=== PATIENT | male | born 1985 | race Caucasian/White ===

== ENCOUNTER 2017-05-05 08:10 | Emergency (ER) | payer SELFPAY ==
[2017-05-05 08:16] VITALS: BP 181/98
[2017-05-05] MEDS ORDERED: Ondansetron 4 MG/2 ML SDV IVPUSH ONE (08:43)
[2017-05-05] MEDS ORDERED: Sodium Chloride 0.9% 1,000 ML IV SCH ×2 (08:45→09:45)
--- NOTE | 2017-05-05 08:49 | EDM.PDOC ---
ED HPI GENERAL MEDICAL PROBLEM - General Chief Complaint: Gastrointestinal Problem Stated Complaint: nausea/vomting/diarrhea Time Seen by Provider: 05/05/17 08:38 Source of Information: Reports: Patient History Limitations: Reports: No Limitations - History of Present Illness Onset: Today, Sudden Onset Date: 05/05/17 Onset Time: 03:30 Duration: Hour(s): (4), Getting Worse Location: Reports: Generalized Severity: Mild Improves with: Reports: None Worsens with: Reports: Movement Context: Denies: Sick Contact, Trauma Associated Symptoms: Reports: Loss of Appetite, Nausea/Vomiting. Denies: Fever/ Chills, Headaches, Rash Abdominal Pain Score (Numeric/FACES): 8 - Related Data Allergies Allergy/AdvReac Type Severity Reaction Status Date / Time acetaminophen [From Vicodin] Allergy Nausea and Verified 05/05/17 08:17 Vomiting codeine Allergy Nausea and Verified 05/05/17 08:17 Vomiting hydrocodone [From Vicodin] Allergy Nausea and Verified 05/05/17 08:17 Vomiting Home Meds: Home Meds . [No Known Home Meds] 08/05/16 [History] Past Medical History HEENT History: Reports: None Cardiovascular History: Reports: None Respiratory History: Reports: None Gastrointestinal History: Reports: None Genitourinary History: Reports: None Musculoskeletal History: Reports: None Neurological History: Reports: None Psychiatric History: Reports: None Endocrine/Metabolic History: Reports: None Hematologic History: Reports: None Immunologic History: Reports: None Oncologic (Cancer) History: Reports: None Dermatologic History: Reports: None - Infectious Disease History Infectious Disease History: Reports: None - Past Surgical History Head Surgeries/Procedures: Reports: None HEENT Surgical History: Reports: None Cardiovascular Surgical History: Reports: None Respiratory Surgical History: Reports: None GI Surgical History: Reports: Hernia, Inguinal, Hernia Repair/Other Male Surgical History: Reports: None Endocrine Surgical History: Reports: None Neurological Surgical History: Reports: None Musculoskeletal Surgical History: Reports: None Oncologic Surgical History: Reports: None Dermatological Surgical History: Reports: None Social & Family History - Family History Family Medical History: Noncontributory - Tobacco Use Smoking Status *Q: Never Smoker Years of Tobacco use: 10 Used Tobacco, but Quit: Yes Month Tobacco Last Used: 2014 Second Hand Smoke Exposure: Yes - Tobacco Core Measures Tobacco Use/Smoking Within Last 30 Days: No - Caffeine Use Caffeine Use: Reports: Coffee - Alcohol Use Alcohol Use History: No - Recreational Drug Use Recreational Drug Use: No - Sexual History Sexual History: Reports: None - Living Situation & Occupation Living situation: Reports: Single Occupation: Employed ED ROS GENERAL - Review of Systems Review Of Systems: See Below Constitutional: Reports: Fever, Chills, Weakness, Decreased Appetite. Denies: Diaphoresis HEENT: Reports: No Symptoms Respiratory: Reports: No Symptoms Cardiovascular: Reports: No Symptoms Endocrine: Reports: No Symptoms GI/Abdominal: Reports: Abdominal Pain, Diarrhea, Vomiting (Bile colored emesis) . Denies: Black Stool, Bloody Stool, Hematemesis, Hematochezia, Melena, Stool Incontinence : Reports: No Symptoms Musculoskeletal: Reports: No Symptoms Skin: Reports: No Symptoms Neurological: Reports: No Symptoms Psychiatric: Reports: No Symptoms Hematologic/Lymphatic: Reports: No Symptoms Immunologic: Reports: No Symptoms (Cramping abdominal discomfort with diarrhea) ED EXAM, GI/ABD - Physical Exam Exam: See Below Exam Limited By: No Limitations General Appearance: Alert, WD/WN, Mild Distress, Thin Eyes: Bilateral: Normal Appearance (No icterus), EOMI Ears: Normal External Exam, Normal Canal, Hearing Grossly Normal, Normal TMs Nose: Normal Inspection, Normal Mucosa, No Blood Throat/Mouth: Normal Inspection, Normal Lips, Normal Teeth, Normal Gums, Normal Oropharynx, Normal Voice, No Airway Compromise Head: Atraumatic, Normocephalic Neck: Normal Inspection, Supple, Non-Tender, Full Range of Motion Respiratory/Chest: No Respiratory Distress, No Accessory Muscle Use, Chest Non- Tender, Wheezing (Bilateral lower lobe region) Cardiovascular: Normal Peripheral Pulses, Regular Rate, Rhythm, No Edema, No JVD GI/Abdominal: Normal Bowel Sounds, Soft, No Distention, Tenderness. No: Guarding, Rebound, Rigidity, Hepatomegaly, Splenomegaly, Hernia, McBurney's Sign , Psoas Sign, Obturator Sign, Yang's Sign (Male) Exam: Deferred Rectal (Males) Exam: Deferred Back Exam: Normal Inspection, Full Range of Motion Extremities: Normal Inspection, Normal Range of Motion, Non-Tender, No Pedal Edema, Normal Capillary Refill Neurological: Alert, Oriented, CN II-XII Intact, Normal Cognition, Normal Gait, No Motor/Sensory Deficits Psychiatric: Normal Affect, Normal Mood Skin Exam: Warm, Dry, Intact, Normal Color (Multiple tattoo), Tattoo(s) Lymphatic: No Adenopathy Course - Vital Signs Last Recorded V/S: Last Vital Signs Temp 36.6 C 05/05/17 08:11 Pulse 70 05/05/17 08:11 Resp 20 05/05/17 08:11 BP 181/98 H 05/05/17 08:11 Pulse Ox 99 05/05/17 08:11 - Orders/Labs/Meds Orders: Active Orders 24 hr Category Date Time Status Chest 2V [CR] Stat Exams 05/05/17 09:04 Ordered DRUG SCREEN URINE BIORAD [URCHEM] Stat Lab 05/05/17 09:06 Uncollected UA W/MICROSCOPIC [URIN] Stat Lab 05/05/17 09:06 Uncollected Sodium Chloride 0.9% [Normal Saline] 1,000 ml Med 05/05/17 08:45 Active IV ASDIRECTED Medication Orders Sodium Chloride (Normal Saline) 1,000 mls @ 999 mls/hr IV ASDIRECTED TYLER Last Admin: 05/05/17 08:52 Dose: 999 mls/hr Labs: Laboratory Tests 05/05/17 05/05/17 Range/Units 08:30 08:30 WBC 14.0 H (5.0-10.0) 10^3/uL RBC 4.84 (4.50-6.00) 10^6/uL Hgb 14.6 (14.0-18.0) g/dL Hct 42.9 (40.0-54.0) % MCV 88.6 (82.0-94.0) fL MCH 30.2 (27.0-32.0) pg MCHC 34.0 (33.0-38.0) g/dL RDW Coeff of Sara 12.6 (11.0-15.0) % Plt Count 233 (150-400) 10^3/uL Neut % (Auto) 76.9 (35-85) % Lymph % (Auto) 14.7 (10-55) % Kleberg % (Auto) 7.6 (0-16) % Eos % (Auto) 0.7 (0-5) % Baso % (Auto) 0.1 (0-3) % Neut # (Auto) 10.74 H (1.80-7.00) 10^3/uL Lymph # (Auto) 2.06 (1.00-4.80) 10^3/uL Kleberg # (Auto) 1.06 H (0.00-0.80) 10^3/uL Eos # (Auto) 0.10 (0.00-0.45) 10^3/uL Baso # (Auto) 0.02 10^3/uL Sodium 140 (136-145) mEq/L Potassium 4.1 (3.5-5.0) mEq/L Chloride 103 (98-106) mEq/L Carbon Dioxide 25 (21-32) mmol/L BUN 16 (7-18) mg/dL Creatinine 0.9 (0.7-1.3) mg/dL Est Cr Clr Drug Dosing 115.50 mL/min Estimated GFR (MDRD) > 60 (>=60) mL/min Glucose 135 H (75-99) mg/dL Calcium 9.0 (8.4-10.1) mg/dL Total Bilirubin 0.4 (0.0-1.0) mg/dL AST 24 (15-37) U/L ALT 28 (12-78) U/L Alkaline Phosphatase 96 (46-116) U/L C-Reactive Protein < 0.2 L (0.2-0.8) mg/dL Total Protein 7.2 (6.4-8.2) g/dL Albumin 4.1 (3.4-5.0) g/dL Amylase 54 (25-115) U/L Meds: Medications Generic Name Dose Route Start Last Admin Trade Name Freq PRN Reason Stop Dose Admin Sodium Chloride 1,000 mls @ 999 mls/hr 05/05/17 08:45 05/05/17 08:52 Normal Saline IV 999 mls/hr ASDIRECTED TYLER Administration Discontinued Medications Generic Name Dose Route Start Last Admin Trade Name Freq PRN Reason Stop Dose Admin Ondansetron HCl 4 mg 05/05/17 08:43 05/05/17 08:49 Zofran IVPUSH 05/05/17 08:44 4 mg ONETIME ONE Administration Departure - Departure Time of Disposition: 09:46 Disposition: Home, Self-Care 01 Condition: good Clinical Impression: Gastroenteritis, Nausea and vomiting, Leukocytosis, unspecified - Discharge Information Instructions: Dehydration, Adult, [id number], Viral Gastroenteritis, Adult, [id number], Abdominal Pain, Adult, [id number]-[id number], Nausea and Vomiting, Adult, [id number]-[id number], Food Poisoning, [id number] Referrals: PCP,None [Primary Care Provider] - Forms: ED Department Discharge Additional Instructions: Take home Zofran 4mg to take every 6 hours prn. F/U with PCP as indicated if S/S return and prn. Take Home sheet reviewed re: rehydration and discharge after 2nd litre of fluid if stable. MLP Sign Off - Signature Requirements MLP Sign Off: No - Problem List & Annotations (1) Nausea and vomiting SNOMED Code(s): 22153480 Code(s): R11.2 - NAUSEA WITH VOMITING, UNSPECIFIED Status: Acute Current Visit: Yes Qualifiers: Qualified Code(s): R11.14 - Bilious vomiting (2) Leukocytosis, unspecified SNOMED Code(s): 035360759, 200254328 Code(s): D72.829 - ELEVATED WHITE BLOOD CELL COUNT, UNSPECIFIED Status: Acute Current Visit: Yes - My Orders Last 24 Hours: My Active Orders 05/05/17 08:45 Sodium Chloride 0.9% [Normal Saline] 1,000 ml IV ASDIRECTED 05/05/17 09:04 Chest 2V [CR] Stat 05/05/17 09:06 DRUG SCREEN URINE BIORAD [URCHEM] Stat UA W/MICROSCOPIC [URIN] Stat - Assessment/Plan Last 24 Hours: My Active Orders 05/05/17 08:45 Sodium Chloride 0.9% [Normal Saline] 1,000 ml IV ASDIRECTED 05/05/17 09:04 Chest 2V [CR] Stat 05/05/17 09:06 DRUG SCREEN URINE BIORAD [URCHEM] Stat UA W/MICROSCOPIC [URIN] Stat Assessment:: Gastroenteritis Leukocytosis Plan: Rehydration with 2000 cc NS and IV Zofran 4 mg with significant improvement and resolution of nausea and abdominal pain. 09:30-Reevaluation doing much better-indicates feels he will do fine a home. Advised clear liquids today and avoid spicey ulcergenitc diet. Take home Zofran 4mg to take every 6 hours prn. F/U with PCP as indicated if S/S return and prn. Take Home sheet reviewed re: rehydration and discharge after 2nd litre of fluid if stable.
[2017-05-05 08:54] LABS: CHLORIDE,CL 103 mEq/L (98-106); SODIUM,NA 140 mEq/L (136-145)
[2017-05-05] MEDS ORDERED: Take Home: Ondansetron 4 MG Tab.DIS, 2 Tab Pack PO ONE (09:46)
[2017-05-05] MEDS ORDERED: Ondansetron 4 MG Tab.DIS PO ONE (10:00)
== END 2017-05-05 10:58 | disposition home or self-care (01) ==
LOC: CC.ED 08:10
DX: K52.9 Noninfective gastroenteritis and colitis, unspecified (principal); D72.829 Elevated white blood cell count, unspecified; Z88.5 Allergy status to narcotic agent; Z88.6 Allergy status to analgesic agent; Z88.8 Allergy status to other drugs, medicaments and biological substances
CPT/HCPCS: 36415; 71020; 80053; 82150; 85025; 86140; 96361; 96374; 99284; A9270; J2405; J7030

== ENCOUNTER 2017-05-20 00:30 | Emergency (ER) | payer SELFPAY ==
[2017-05-20 00:46] VITALS: BP 147/85
[2017-05-20] MEDS ORDERED: Take Home: Amoxicillin/Clavulanate K 875-125 MG Tab, 2 Tab Pack PO ONE (00:47)
[2017-05-20] MEDS ORDERED: Amoxicillin/Clavulanate K 875-125 MG Tab PO ONE (10:00)
== END 2017-05-20 01:00 | disposition home or self-care (01) ==
LOC: CC.ED 00:30
DX: K04.7 Periapical abscess without sinus (principal); Z88.5 Allergy status to narcotic agent; Z88.8 Allergy status to other drugs, medicaments and biological substances; Z87.891 Personal history of nicotine dependence
CPT/HCPCS: 99282; A9270

== ENCOUNTER 2018-04-03 03:55 | Emergency (ER) | payer SELFPAY ==
[2018-04-03] MEDS ORDERED: Amoxicillin/Clavulanate K 875-125 MG Tab PO ONE (03:56)
[2018-04-03] MEDS ORDERED: Ketorolac 60 MG/2 ML SDV IM ONE (04:20)
[2018-04-03] MEDS ORDERED: Take Home: Amoxicillin/Clavulanate K 875-125 MG Tab, 2 Tab Pack PO ONE (04:22)
--- NOTE | 2018-04-03 04:24 | EDM.PDOC ---
ED HPI GENERAL MEDICAL PROBLEM - General Chief Complaint: General Stated Complaint: "Having tooth pain" Time Seen by Provider: 04/03/18 04:15 Source of Information: Reports: Patient History Limitations: Reports: No Limitations - History of Present Illness INITIAL COMMENTS - FREE TEXT/NARRATIVE: Patient presents with a toothache and subsequent pain in the jaw. States has been bothering him for the last 3 days but has progressively gotten worse tonight. States took ibuprofen an hour ago and hasn't really helped with the pain. Has not been able to eat or drink well. Admits that he has been working with Dr. Selby over the last several months in order to have his teeth removed but can't afford to get it all done at one time. Onset: Gradual Duration: Day(s): Location: Reports: Head Quality: Reports: Throbbing Severity: Severe Improves with: Reports: None Associated Symptoms: Reports: No Other Symptoms Treatments SALESPERSON USED CARS: Reports: NSAIDS Right Lower Tooth/Teeth Pain Score (Numeric/FACES): 10 - Related Data Allergies Allergy/AdvReac Type Severity Reaction Status Date / Time acetaminophen [From Vicodin] Allergy Nausea and Verified 04/03/18 04:16 Vomiting codeine Allergy Nausea and Verified 04/03/18 04:16 Vomiting hydrocodone [From Vicodin] Allergy Nausea and Verified 04/03/18 04:16 Vomiting Home Meds: Home Meds . [No Known Home Meds] 08/05/16 [History] Past Medical History HEENT History: Reports: None Cardiovascular History: Reports: None Respiratory History: Reports: None Gastrointestinal History: Reports: None Genitourinary History: Reports: None Musculoskeletal History: Reports: None Neurological History: Reports: None Psychiatric History: Reports: None Endocrine/Metabolic History: Reports: None Hematologic History: Reports: None Immunologic History: Reports: None Oncologic (Cancer) History: Reports: None Dermatologic History: Reports: None - Infectious Disease History Infectious Disease History: Reports: None - Past Surgical History Head Surgeries/Procedures: Reports: None HEENT Surgical History: Reports: None Cardiovascular Surgical History: Reports: None Respiratory Surgical History: Reports: None GI Surgical History: Reports: Hernia, Inguinal, Hernia Repair/Other Male Surgical History: Reports: None Endocrine Surgical History: Reports: None Neurological Surgical History: Reports: None Musculoskeletal Surgical History: Reports: None Oncologic Surgical History: Reports: None Dermatological Surgical History: Reports: None Social & Family History - Family History Family Medical History: Noncontributory - Tobacco Use Smoking Status *Q: Former Smoker Years of Tobacco use: 10 Used Tobacco, but Quit: Yes Month/Year Tobacco Last Used: 2014 Second Hand Smoke Exposure: Yes - Caffeine Use Caffeine Use: Reports: Coffee - Recreational Drug Use Recreational Drug Use: No - Sexual History Sexual History: Reports: None - Living Situation & Occupation Living situation: Reports: Single Occupation: Employed ED ROS GENERAL - Review of Systems Review Of Systems: ROS reveals no pertinent complaints other than HPI. ED EXAM, GENERAL - Physical Exam Exam: See Below Exam Limited By: No Limitations General Appearance: Alert, WD/WN, Mild Distress Ears: Normal External Exam, Normal TMs Nose: Normal Inspection, Normal Mucosa, No Blood Throat/Mouth: Normal Inspection, Other (multiple broken off teeth. Tender to right lower molar region. Several missing teeth. ). No: Normal Teeth Neck: Normal Inspection, Supple, Non-Tender Respiratory/Chest: No Respiratory Distress, Lungs Clear, Normal Breath Sounds Cardiovascular: Regular Rate, Rhythm Course - Vital Signs Last Recorded V/S: Last Vital Signs Temp 97.4 F 04/03/18 04:15 Pulse 57 L 04/03/18 04:15 Resp 20 04/03/18 04:15 BP 143/89 H 04/03/18 04:15 Pulse Ox 96 04/03/18 04:15 - Orders/Labs/Meds Meds: Medications Discontinued Medications Generic Name Dose Route Start Last Admin Trade Name Jakub PRN Reason Stop Dose Admin Amoxicillin/Clavulanate Potassium 1 packet 04/03/18 04:22 04/03/18 04:45 Take Home: Amox/Clavulanate 875-12, 2 Tab Pac PO 04/03/18 04:23 1 packet ONETIME ONE Administration Amoxicillin/Clavulanate Potassium 2 tab 04/03/18 03:56 Augmentin 875 Mg/125 Mg PO 04/03/18 03:57 .STK-MED ONE Ketorolac Tromethamine 60 mg 04/03/18 04:20 04/03/18 04:30 Toradol IM 04/03/18 04:21 60 mg ONETIME ONE Administration Departure - Departure Time of Disposition: 04:23 Disposition: Home, Self-Care 01 Clinical Impression: Tooth abscess - Discharge Information Referrals: PCP,None [Primary Care Provider] - Forms: ED Department Discharge Additional Instructions: 1. Soft foods 2. Tramadol 50 mg every 6 hours as needed for pain 3. Augmentin 875 mg twice a day for [address] Selby for follow up
[2018-04-03 05:18] VITALS: BP 143/89
== END 2018-04-03 04:55 | disposition home or self-care (01) ==
LOC: CC.ED 03:55
DX: K04.7 Periapical abscess without sinus (principal); Z88.8 Allergy status to other drugs, medicaments and biological substances; Z88.5 Allergy status to narcotic agent; Z88.6 Allergy status to analgesic agent; Z87.891 Personal history of nicotine dependence
CPT/HCPCS: 96372; 99282; A9270; J1885

== ENCOUNTER 2018-10-03 17:50 | Emergency (ER) | payer SELFPAY ==
[2018-10-03 17:56] VITALS: BP 137/90
[2018-10-03] MEDS ORDERED: Ketorolac 60 MG/2 ML SDV IM ONE (18:14)
--- NOTE | 2018-10-03 18:19 | EDM.PDOC ---
ED [facility] GENERAL MEDICAL PROBLEM - General Chief Complaint: Back Pain or Injury Stated Complaint: back pain Time Seen by Provider: 10/03/18 18:07 Source of Information: Reports: Patient History Limitations: Reports: No Limitations - History of Present Illness Onset: Gradual, Other (reports pain began after arriving home from work yesterday afternoon. reports has gradually worsened since then. denies injury or trauma) Location: Reports: Other (LEFT upper back) Quality: Reports: Stabbing, Other (spasm) Improves with: Reports: None Worsens with: Reports: Movement Context: Reports: Lifting Associated Symptoms: Reports: No Other Symptoms Left Middle Back Pain Score (Numeric/FACES): 9 - Related Data Allergies Allergy/AdvReac Type Severity Reaction Status Date / Time codeine Allergy Nausea and Verified 10/03/18 17:58 Vomiting hydrocodone [From Vicodin] Allergy Nausea and Verified 10/03/18 17:58 Vomiting Home Meds: Home Meds . [No Known Home Meds] 08/05/16 [History] Past Medical History HEENT History: Reports: None Other HEENT History: Dental carries Cardiovascular History: Reports: None Respiratory History: Reports: None Gastrointestinal History: Reports: None Genitourinary History: Reports: None Musculoskeletal History: Reports: None Neurological History: Reports: None Psychiatric History: Reports: None Endocrine/Metabolic History: Reports: None Hematologic History: Reports: None Immunologic History: Reports: None Oncologic (Cancer) History: Reports: None Dermatologic History: Reports: None - Infectious Disease History Infectious Disease History: Reports: None - Past Surgical History Head Surgeries/Procedures: Reports: None HEENT Surgical History: Reports: None Cardiovascular Surgical History: Reports: None Respiratory Surgical History: Reports: None GI Surgical History: Reports: Hernia, Inguinal, Hernia Repair/Other Male Surgical History: Reports: None Endocrine Surgical History: Reports: None Neurological Surgical History: Reports: None Musculoskeletal Surgical History: Reports: None Oncologic Surgical History: Reports: None Dermatological Surgical History: Reports: None Social & Family History - Family History Family Medical History: Noncontributory - Tobacco Use Smoking Status *Q: Current Every Day Smoker Years of Tobacco use: 12 Packs/Tins Daily: 0.5 - Caffeine Use Caffeine Use: Reports: Coffee - Recreational Drug Use Recreational Drug Use: No - Sexual History Sexual History: Reports: None - Living Situation & Occupation Living situation: Reports: Single Occupation: Employed ED [facility] [employer] [employer] GENERAL - Review of Systems Review Of Systems: See Below Constitutional: Reports: No Symptoms Respiratory: Reports: No Symptoms Cardiovascular: Reports: No Symptoms Musculoskeletal: Reports: Other (LEFT upper back pain / spasm) Skin: Reports: No Symptoms Neurological: Reports: No Symptoms ED EXAM, UPPER BACK/NECK PAIN - Physical Exam Exam: See Below Exam Limited By: No Limitations General Appearance: Alert, WD/WN, Mild Distress Head Exam: Atraumatic, Normocephalic Neck Exam: Non-Tender, Full Range of Motion, Normal Alignment, Normal Inspection Cardiovascular/Respiratory: Regular Rate, Rhythm, Normal Peripheral Pulses Back Exam: Other (palpable spasm near the medial border of the LEFT scapula. no spinal tenderness / stepoff / deformity) Extremities: Normal Inspection, Normal Range of Motion, Non-Tender, No Pedal Edema, Normal Capillary Refill Neurologic: No Motor/Sensory Deficits, Alert, Normal Mood/Affect, Oriented x 3 Skin Exam: Normal Color, Warm/Dry Lymphatic: No Adenopathy Course - Vital Signs Last Recorded V/S: Last Vital Signs Temp 36.6 C 10/03/18 17:51 Pulse 79 10/03/18 17:51 Resp 18 10/03/18 17:51 BP 137/90 10/03/18 17:51 Pulse Ox 100 10/03/18 17:51 - Orders/Labs/Meds Meds: Medications Discontinued Medications Generic Name Dose Route Start Last Admin Trade Name Jose Raulq PRN Reason Stop Dose Admin Ketorolac Tromethamine 60 mg 10/03/18 18:14 10/03/18 18:17 Toradol IM 10/03/18 18:15 60 mg ONETIME ONE Administration Departure - Departure Time of Disposition: 18:18 Disposition: Home, Self-Care 01 Condition: Good Clinical Impression: Muscle spasm of back - Discharge Information *PRESCRIPTION DRUG MONITORING PROGRAM REVIEWED*: Not Applicable *COPY OF PRESCRIPTION DRUG MONITORING REPORT IN PATIENT DAMON: Not Applicable Instructions: Back Exercises, Heat Therapy, Muscle Cramps and Spasms Referrals: PCP,None [Primary Care Provider] - Forms: ED Department Discharge - Problem List Review Problem List Initiated/Reviewed/Updated: Yes - Assessment/Plan Assessment:: Muscle spasm A palpable spasm is felt along the LEFT medial scapula. Given mg IM toradol here in ED with pain reduction from 9/10 to XXXX. Rx for PO cyclobenzaprine. Advised patient to rest, hydrate, take all Rx as directed, OTC tylenol and ibuprofen PRN pain, fu with PCP in 3-5 days, fu with physical therapy in 3-5 days, ice and heat to affected area, go to ER if change or worse. Patient and family at bedside report understanding and agreement. DC home stable in care of family.
== END 2018-10-03 18:38 | disposition home or self-care (01) ==
LOC: CC.ED 17:50
DX: M62.830 Muscle spasm of back (principal); F17.210 Nicotine dependence, cigarettes, uncomplicated; Z88.5 Allergy status to narcotic agent
CPT/HCPCS: 96372; 99282; J1885

== ENCOUNTER 2019-09-01 08:26 | Emergency (ER) | payer SELFPAY ==
[2019-09-01] MEDS ORDERED: Ondansetron 4 MG/2 ML SDV IM PRN (08:28)
[2019-09-01 08:33] VITALS: BP 143/96; PULSE 79
[2019-09-01] MEDS ORDERED: Sodium Chloride 0.9% 1,000 ML IV ONE (08:44)
[2019-09-01] MEDS ORDERED: Lactated Ringers 1,000 ML IV SCH (08:45)
[2019-09-01 09:14] LABS: CHLORIDE,CL 103 mEq/L (98-106); SODIUM,NA 143 mEq/L (136-145)
--- NOTE | 2019-09-01 09:26 | EDM.PDOC ---
ED HPI GENERAL MEDICAL PROBLEM - General Chief Complaint: Gastrointestinal Problem Stated Complaint: FLU Time Seen by Provider: 09/01/19 08:50 Source of Information: Reports: Patient History Limitations: Reports: No Limitations - History of Present Illness INITIAL COMMENTS - FREE TEXT/NARRATIVE: Patient presents with complaints of abdominal discomfort and vomiting. States consumed a lot of alcohol yesterday and is worried about alcohol poisoning. He started drinking at noon yesterday, stopped around midnight. States was drinking vodka. Vomited all night long. Now abdomen is sore. Thought emesis was quite dark so worried about blood present in it. He denies diarrhea. Has not slept much last night. Onset: Gradual Duration: Hour(s):, Waxing/Waning Location: Reports: Abdomen Quality: Reports: Ache Severity: Moderate Improves with: Reports: None Associated Symptoms: Reports: Nausea/Vomiting. Denies: Confusion, Chest Pain, Cough, Fever/Chills, Loss of Appetite, Shortness of Breath Abdomen Pain Score (Numeric/FACES): 5 - Related Data Allergies Allergy/AdvReac Type Severity Reaction Status Date / Time codeine Allergy Nausea and Verified 03/05/19 16:23 Vomiting hydrocodone [From Vicodin] Allergy Nausea and Verified 03/05/19 16:23 Vomiting Home Meds: Home Meds . [No Known Home Meds] 08/05/16 [History] Past Medical History HEENT History: Reports: None Other HEENT History: Dental carries Cardiovascular History: Reports: None Respiratory History: Reports: None Gastrointestinal History: Reports: None Genitourinary History: Reports: None Musculoskeletal History: Reports: None Neurological History: Reports: None Psychiatric History: Reports: None Endocrine/Metabolic History: Reports: None Hematologic History: Reports: None Immunologic History: Reports: None Oncologic (Cancer) History: Reports: None Dermatologic History: Reports: None - Infectious Disease History Infectious Disease History: Reports: None - Past Surgical History Head Surgeries/Procedures: Reports: None HEENT Surgical History: Reports: None Cardiovascular Surgical History: Reports: None Respiratory Surgical History: Reports: None GI Surgical History: Reports: Hernia, Inguinal, Hernia Repair/Other Male Surgical History: Reports: None Endocrine Surgical History: Reports: None Neurological Surgical History: Reports: None Musculoskeletal Surgical History: Reports: None Oncologic Surgical History: Reports: None Dermatological Surgical History: Reports: None Social & Family History - Family History Family Medical History: Noncontributory - Tobacco Use Smoking Status *Q: Current Every Day Smoker Years of Tobacco use: 10 Packs/Tins Daily: 1 - Caffeine Use Caffeine Use: Reports: Coffee, Energy Drinks - Recreational Drug Use Recreational Drug Use: No - Sexual History Sexual History: Reports: None - Living Situation & Occupation Living situation: Reports: Single Occupation: Employed ED ROS GENERAL - Review of Systems Review Of Systems: See Below Constitutional: Reports: Chills, Malaise, Weakness, Fatigue. Denies: Fever HEENT: Reports: No Symptoms Respiratory: Denies: Shortness of Breath, Cough Cardiovascular: Denies: Chest Pain, Edema, Lightheadedness Endocrine: Denies: Fatigue GI/Abdominal: Reports: Abdominal Pain, Hematemesis, Nausea, Vomiting. Denies: Constipation, Diarrhea : Reports: No Symptoms Musculoskeletal: Reports: No Symptoms Skin: Reports: No Symptoms Neurological: Reports: Headache, Weakness ED EXAM, GI/ABD - Physical Exam Exam: See Below Exam Limited By: No Limitations General Appearance: Alert, WD/WN, Mild Distress Ears: Normal External Exam, Normal TMs Nose: Normal Inspection, Normal Mucosa, No Blood Throat/Mouth: Normal Inspection, Normal Oropharynx Head: Normocephalic Neck: Normal Inspection, Supple, Non-Tender Respiratory/Chest: No Respiratory Distress, Lungs Clear, Normal Breath Sounds Cardiovascular: Regular Rate, Rhythm, No Edema GI/Abdominal Exam: Normal Bowel Sounds, Soft, Tender (soft, mildly tender throughout) Extremities: Normal Inspection, No Pedal Edema Neurological: Alert, Oriented, CN II-XII Intact Skin Exam: Warm, Dry Course - Vital Signs Last Recorded V/S: Last Vital Signs Temp 94.5 F L 09/01/19 08:30 Pulse 79 09/01/19 08:30 Resp 20 09/01/19 08:30 BP 143/96 H 09/01/19 08:30 Pulse Ox 100 09/01/19 08:30 - Orders/Labs/Meds Orders: Active Orders 24 hr Category Date Time Status Abdomen 2V AP Flat Upright [CR] Stat Exams 09/01/19 08:40 Taken Labs: Laboratory Tests 09/01/19 09/01/19 Range/Units 09:00 09:00 WBC 11.4 H (5.0-10.0) 10^3/uL RBC 5.22 (4.50-6.00) 10^6/uL Hgb 16.7 (14.0-18.0) g/dL Hct 46.8 (40.0-54.0) % MCV 89.7 (82.0-94.0) fL MCH 32.0 (27.0-32.0) pg MCHC 35.7 (33.0-38.0) g/dL RDW Coeff of Sara 12.5 (11.0-15.0) % Plt Count 234 (150-400) 10^3/uL Neut % (Auto) 81.8 (35-85) % Lymph % (Auto) 12.9 (10-55) % [place] % (Auto) 5.2 (0-16) % Eos % (Auto) 0 (0-5) % Baso % (Auto) 0.1 (0-3) % Neut # (Auto) 9.36 H (1.80-7.00) 10^3/uL Lymph # (Auto) 1.47 (1.00-4.80) 10^3/uL [place] # (Auto) 0.59 (0.00-0.80) 10^3/uL Eos # (Auto) 0.00 (0.00-0.45) 10^3/uL Baso # (Auto) 0.01 10^3/uL Sodium 143 (136-145) mEq/L Potassium 4.0 (3.5-5.0) mEq/L Chloride 103 (98-106) mEq/L Carbon Dioxide 23 (21-32) mmol/L BUN 10 (7-18) mg/dL Creatinine 1.0 (0.7-1.3) mg/dL Est Cr Clr Drug Dosing 101.11 mL/min Estimated GFR (MDRD) > 60 (>=60) mL/min Glucose 144 H (75-99) mg/dL Calcium 9.8 (8.4-10.1) mg/dL Total Bilirubin 0.4 (0.0-1.0) mg/dL AST 25 (15-37) U/L ALT 30 (12-78) U/L Alkaline Phosphatase 74 (46-116) U/L C-Reactive Protein < 0.2 L (0.2-0.8) mg/dL Total Protein 8.2 (6.4-8.2) g/dL Albumin 4.8 (3.4-5.0) g/dL Ethyl Alcohol 28 H (0-3) mg/dL Meds: Medications Discontinued Medications Generic Name Dose Route Start Last Admin Trade Name Jakub PRN Reason Stop Dose Admin Sodium Chloride 1,000 mls @ 999 mls/hr 09/01/19 08:44 09/01/19 09:01 Normal Saline IV 09/01/19 09:44 999 mls/hr .BOLUS ONE Administration Ondansetron HCl 4 mg 09/01/19 08:28 09/01/19 08:36 Zofran IM 4 mg Q6H PRN Administration Nausea/Vomiting - Re-Assessments/Exams Free Text/Narrative Re-Assessment/Exam: 09/01/19 09:25 Labs are all normal. Zofran was given, no vomiting since. Had one emesis prior and nurse did not note any blood in vomitus. Departure - Departure Time of Disposition: 09:25 Disposition: Home, Self-Care 01 Condition: Fair Clinical Impression: Vomiting - Discharge Information *PRESCRIPTION DRUG MONITORING PROGRAM REVIEWED*: No *COPY OF PRESCRIPTION DRUG MONITORING REPORT IN PATIENT DAMON: No Referrals: PCP,None [Primary Care Provider] - Forms: ED Department Discharge Additional Instructions: 1. Rest 2. Push fluids 3. Avoid alcohol 4. Follow up if persisting concerns. - My Orders Last 24 Hours: My Active Orders 09/01/19 08:40 Abdomen 2V AP Flat Upright [CR] Stat - Assessment/Plan Last 24 Hours: My Active Orders 09/01/19 08:40 Abdomen 2V AP Flat Upright [CR] Stat
== END 2019-09-01 10:15 | disposition home or self-care (01) ==
LOC: CC.ED 08:26
DX: R11.2 Nausea with vomiting, unspecified (principal); F17.210 Nicotine dependence, cigarettes, uncomplicated; Z88.5 Allergy status to narcotic agent
CPT/HCPCS: 36415; 74019; 80053; 85025; 86140; 96360; 96372; 99283-25; G0480; J2405; J7030

== ENCOUNTER 2020-01-23 09:22 | Emergency (ER) | payer SELFPAY ==
[2020-01-23] MEDS ORDERED: Ondansetron 4 MG Tab.DIS PO ONE (09:23)
[2020-01-23 09:26] VITALS: BP 147/92; PULSE 60
[2020-01-23] MEDS ORDERED: Sodium Chloride 0.9% 1,000 ML IV ONE (09:37)
[2020-01-23] MEDS ORDERED: Thiamine 100 MG in Sodium Chloride 0.9% 100 ML IV ONE (09:38)
[2020-01-23] MEDS ORDERED: Ondansetron 4 MG/2 ML SDV IVPUSH ONE (09:40)
[2020-01-23] MEDS ORDERED: Pantoprazole 40 MG Vial IVPUSH ONE (09:40)
[2020-01-23 10:08] LABS: CHLORIDE,CL 102 mEq/L (98-106); SODIUM,NA 141 mEq/L (136-145)
[2020-01-23] MEDS ORDERED: Sodium Chloride 0.9% 1,000 ML IV SCH (12:00)
--- NOTE | 2020-01-23 12:19 | EDM.PDOC ---
ED HPI GENERAL MEDICAL PROBLEM - General Chief Complaint: General Stated Complaint: "alcohol poisoning" Time Seen by Provider: 01/23/20 09:22 Source of Information: Reports: Patient History Limitations: Reports: No Limitations - History of Present Illness INITIAL COMMENTS - FREE TEXT/NARRATIVE: Patient to the emergency department complaint of nausea vomiting and abdominal cramping since this morning. The patient advised that symptoms started after he was drinking last night he advised he drink about a half a bottle of vodka. The patient denies any ear, nose, throat symptoms denies any unusual neck, back pain or stiffness denies any fever chills he denies coughing up any black or bloody emesis he denies any coffee-ground emesis he denies any black or tarry stools he denies any bloody stools Onset: Today Duration: Hour(s): Location: Reports: Abdomen Quality: Reports: Ache Severity: Severe Improves with: Reports: None Worsens with: Reports: None Associated Symptoms: Reports: Nausea/Vomiting. 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 [No Known Home Meds] 08/05/16 [History] Past Medical History HEENT History: Reports: None Other HEENT History: Dental carries Cardiovascular History: Reports: None Respiratory History: Reports: None Gastrointestinal History: Reports: None Genitourinary History: Reports: None Musculoskeletal History: Reports: None Neurological History: Reports: None Psychiatric History: Reports: None Endocrine/Metabolic History: Reports: None Hematologic History: Reports: None Immunologic History: Reports: None Oncologic (Cancer) History: Reports: None Dermatologic History: Reports: None - Infectious Disease History Infectious Disease History: Reports: None - Past Surgical History Head Surgeries/Procedures: Reports: None HEENT Surgical History: Reports: None Cardiovascular Surgical History: Reports: None Respiratory Surgical History: Reports: None GI Surgical History: Reports: Hernia, Inguinal, Hernia Repair/Other Male Surgical History: Reports: None Endocrine Surgical History: Reports: None Neurological Surgical History: Reports: None Musculoskeletal Surgical History: Reports: None Oncologic Surgical History: Reports: None Dermatological Surgical History: Reports: None Social & Family History - Family History Family Medical History: Noncontributory - Tobacco Use Smoking Status *Q: Current Every Day Smoker Years of Tobacco use: 15 Packs/Tins Daily: 1.5 - Caffeine Use Caffeine Use: Reports: Coffee, Energy Drinks - Alcohol Use Days Per Week of Alcohol Use: 7 Number of Drinks Per Day: 7 Total Drinks Per Week: 49 - Recreational Drug Use Recreational Drug Use: No - Sexual History Sexual History: Reports: None - Living Situation & Occupation Living situation: Reports: Single Occupation: Employed ED ROS GENERAL - Review of Systems Review Of Systems: See Below Constitutional: Reports: No Symptoms. Denies: Fever, Chills HEENT: Reports: No Symptoms Respiratory: Reports: No Symptoms Cardiovascular: Reports: No Symptoms GI/Abdominal: Reports: Abdominal Pain, Nausea, Vomiting. Denies: Black Stool, Bloody Stool, Constipation, Diarrhea, Difficulty Swallowing, Distension, Hematemesis, Melena : Reports: No Symptoms Musculoskeletal: Reports: No Symptoms. Denies: Neck Pain, Back Pain Skin: Reports: No Symptoms Neurological: Reports: No Symptoms Psychiatric: Reports: No Symptoms ED EXAM, GENERAL - Physical Exam Exam: See Below Exam Limited By: No Limitations General Appearance: Alert, WD/WN, Mild Distress, Thin Ears: Normal External Exam Nose: Normal Inspection Throat/Mouth: Normal Inspection, Normal Oropharynx, Normal Voice, No Airway Compromise Head: Atraumatic, Normocephalic Neck: Normal Inspection, Supple, Non-Tender, Full Range of Motion Respiratory/Chest: No Respiratory Distress, Lungs Clear, Normal Breath Sounds, Chest Non-Tender Cardiovascular: Normal Peripheral Pulses, Regular Rate, Rhythm, No Murmur Peripheral Pulses: 2+: Radial (L), Radial (R), Posterior Tibial (L), Posterior Tibial (R) GI/Abdominal: Normal Bowel Sounds, Soft, No Distention. No: Non-Tender ( Epigastric tenderness with palpation), Guarding, Rigid Back Exam: Normal Inspection, Full Range of Motion Extremities: Normal Inspection, Normal Range of Motion, Non-Tender, Normal Capillary Refill Neurological: Alert, Oriented, Normal Cognition, Normal Gait, No Motor/Sensory Deficits Psychiatric: Normal Affect, Normal Mood Skin Exam: Warm, Dry, Intact, Normal Color Course - Vital Signs Text/Narrative:: The patient was evaluated in the emergency department the patient CBC and general chemistries are normal. The patient was given Protonix 40 mg IV push as well as Zofran 4 mg IV push. The patient was given normal saline 1 L bolus and thiamine 100 mg IV. The patient is feeling better after the treatment plan. The patient will be discharged home he will be advised to increase his fluid avoid any alcohol he is to follow-up with family doctor this week and return to emergency department as needed Last Recorded V/S: Last Vital Signs Temp 36.1 C 01/23/20 09:24 Pulse 60 01/23/20 09:24 Resp 18 01/23/20 09:24 BP 147/92 H 01/23/20 09:24 Pulse Ox 97 01/23/20 09:24 - Orders/Labs/Meds Orders: Active Orders 24 hr Category Date Time Status Sodium Chloride 0.9% [Normal Saline] 1,000 ml Med 01/23/20 12:00 Active IV ASDIRECTED Medication Orders Sodium Chloride (Normal Saline) 1,000 mls @ 125 mls/hr IV ASDIRECTED TYLER Labs: Laboratory Tests 01/23/20 01/23/20 Range/Units 09:46 09:46 WBC 7.6 (5.0-10.0) 10^3/uL RBC 5.30 (4.50-6.00) 10^6/uL Hgb 16.6 (14.0-18.0) g/dL Hct 47.3 (40.0-54.0) % MCV 89.2 (82.0-94.0) fL MCH 31.3 (27.0-32.0) pg MCHC 35.1 (33.0-38.0) g/dL RDW Coeff of Sara 12.5 (11.0-15.0) % Plt Count 239 (150-400) 10^3/uL Neut % (Auto) 78.1 (35-85) % Lymph % (Auto) 17.0 (10-55) % [place] % (Auto) 4.8 (0-16) % Eos % (Auto) 0 (0-5) % Baso % (Auto) 0.1 (0-3) % Neut # (Auto) 5.90 (1.80-7.00) 10^3/uL Lymph # (Auto) 1.28 (1.00-4.80) 10^3/uL [place] # (Auto) 0.36 (0.00-0.80) 10^3/uL Eos # (Auto) 0.00 (0.00-0.45) 10^3/uL Baso # (Auto) 0.01 10^3/uL Sodium 141 (136-145) mEq/L Potassium 3.8 (3.5-5.0) mEq/L Chloride 102 (98-106) mEq/L Carbon Dioxide 26 (21-32) mmol/L BUN 9 (7-18) mg/dL Creatinine 0.9 (0.7-1.3) mg/dL Est Cr Clr Drug Dosing 116.09 mL/min Estimated GFR (MDRD) > 60 (>=60) mL/min Glucose 135 H (75-99) mg/dL Calcium 8.7 (8.4-10.1) mg/dL Total Bilirubin 0.4 (0.0-1.0) mg/dL AST 30 (15-37) U/L ALT 40 (12-78) U/L Alkaline Phosphatase 73 (46-116) U/L Total Protein 8.0 (6.4-8.2) g/dL Albumin 4.7 (3.4-5.0) g/dL Meds: Medications Generic Name Dose Route Start Last Admin Trade Name Freq PRN Reason Stop Dose Admin Sodium Chloride 1,000 mls @ 125 mls/hr 01/23/20 12:00 Normal Saline IV ASDIRECTED TYLER Discontinued Medications Generic Name Dose Route Start Last Admin Trade Name Freq PRN Reason Stop Dose Admin Sodium Chloride 1,000 mls @ 999 mls/hr 01/23/20 09:37 01/23/20 09:54 Normal Saline IV 01/23/20 10:37 999 mls/hr .BOLUS ONE Administration Thiamine HCl 100 mg/ Sodium 101 mls @ 202 mls/hr 01/23/20 09:38 01/23/20 09: 54 Chloride IV 01/23/20 09:39 202 mls/hr ONETIME ONE Administration Ondansetron HCl 4 mg 01/23/20 09:40 01/23/20 09:54 Zofran IVPUSH 01/23/20 09:41 4 mg ONETIME ONE Administration Pantoprazole Sodium 40 mg 01/23/20 09:40 01/23/20 09:54 Protonix Iv IVPUSH 01/23/20 09:41 40 mg ONETIME ONE Administration Departure - Departure Time of Disposition: 12:18 Disposition: Home, Self-Care 01 Condition: Good Clinical Impression: Acute alcoholic gastritis - Discharge Information *PRESCRIPTION DRUG MONITORING PROGRAM REVIEWED*: Not Applicable *COPY OF PRESCRIPTION DRUG MONITORING REPORT IN PATIENT DAMON: Not Applicable Instructions: Gastritis, Adult, [id number] Referrals: PCP,None [Primary Care Provider] - Additional Instructions: Increase fluids Avoid alcohol Follow-up with the family doctor this coming week Return to the emergency department sooner if worsening problems Zofran 4 mg every 6 hours as needed for any nausea or vomiting Sepsis Event Note - Evaluation Sepsis Screening Result: No Definite Risk - Focused Exam Vital Signs: Vital Signs Temp Pulse Resp BP Pulse Ox 01/23/20 09:24 36.1 C 60 18 147/92 H 97 Date Exam was Performed: 01/23/20 Time Exam was Performed: 12:14 - Problem List & Annotations (1) Vomiting SNOMED Code(s): 947947485 Code(s): R11.10 - VOMITING, UNSPECIFIED Status: Acute Priority: Medium Current Visit: No (2) Acute alcoholic gastritis SNOMED Code(s): 0128442 Code(s): K29.20 - ALCOHOLIC GASTRITIS WITHOUT BLEEDING Status: Acute Priority: Medium Current Visit: Yes Qualifiers: Gastritis bleeding: without bleeding Qualified Code(s): K29.20 - Alcoholic gastritis without bleeding - Problem List Review Problem List Initiated/Reviewed/Updated: Yes - My Orders Last 24 Hours: My Active Orders 01/23/20 12:00 Sodium Chloride 0.9% [Normal Saline] 1,000 ml IV ASDIRECTED - Assessment/Plan Last 24 Hours: My Active Orders 01/23/20 12:00 Sodium Chloride 0.9% [Normal Saline] 1,000 ml IV ASDIRECTED Plan: As above
[2020-01-23] MEDS ORDERED: Take Home: Ondansetron 4 MG Tab.DIS, 2 Tab Pack PO ONE (12:20)
== END 2020-01-23 12:29 | disposition home or self-care (01) ==
LOC: CC.ED 09:22
DX: K29.20 Alcoholic gastritis without bleeding (principal); Z88.5 Allergy status to narcotic agent; Z88.8 Allergy status to other drugs, medicaments and biological substances
CPT/HCPCS: 36415; 80053; 85025; 96365; 96375; 99284-25; A9270-GY; C9113; J2405; J3411; J7030; J7050

== ENCOUNTER 2020-04-18 20:22 | Emergency (ER) | payer SELFPAY ==
[2020-04-18 20:24] VITALS: BP 130/72; PULSE 86
[2020-04-18] MEDS ORDERED: Sodium Chloride 0.9% 1,000 ML IV ONE (20:48)
--- NOTE | 2020-04-18 20:56 | EDM.PDOC ---
ED HPI GENERAL MEDICAL PROBLEM - General Chief Complaint: Gastrointestinal Problem Stated Complaint: N/V/D Time Seen by Provider: 04/18/20 20:35 Source of Information: Reports: Patient History Limitations: Reports: No Limitations - History of Present Illness INITIAL COMMENTS - FREE TEXT/NARRATIVE: States Saturday night he drank a lot of blue UV and Mt Dew. Went to bed and then woke at about 0300 this morning and started vomiting and has been vomiting ever since. He noted some blood tinge in it with the last emesis about 1.5 hours ago. He was having stomach cramps and back pain earlier. He states that f he even drinks water it wants to come back up. He did also have 1 diarrhea with it. Onset: Gradual Location: Reports: Abdomen Associated Symptoms: Reports: Nausea/Vomiting. Denies: Fever/Chills - Related Data Allergies Allergy/AdvReac Type Severity Reaction Status Date / Time codeine Allergy Nausea and Verified 04/18/20 20:24 Vomiting hydrocodone [From Vicodin] Allergy Nausea and Verified 04/18/20 20:24 Vomiting Home Meds: Home Meds . [No Known Home Meds] 08/05/16 [History] Past Medical History HEENT History: Reports: None Other HEENT History: Dental carries Cardiovascular History: Reports: None Respiratory History: Reports: None Gastrointestinal History: Reports: None Genitourinary History: Reports: None Musculoskeletal History: Reports: None Neurological History: Reports: None Psychiatric History: Reports: None Endocrine/Metabolic History: Reports: None Hematologic History: Reports: None Immunologic History: Reports: None Oncologic (Cancer) History: Reports: None Dermatologic History: Reports: None - Infectious Disease History Infectious Disease History: Reports: None - Past Surgical History Head Surgeries/Procedures: Reports: None HEENT Surgical History: Reports: None Cardiovascular Surgical History: Reports: None Respiratory Surgical History: Reports: None GI Surgical History: Reports: Hernia, Abdominal, Hernia Repair/Other Male Surgical History: Reports: None Endocrine Surgical History: Reports: None Neurological Surgical History: Reports: None Musculoskeletal Surgical History: Reports: None Oncologic Surgical History: Reports: None Dermatological Surgical History: Reports: None Social & Family History - Family History Family Medical History: Noncontributory - Tobacco Use Smoking Status *Q: Current Every Day Smoker Years of Tobacco use: 3 Packs/Tins Daily: 0.5 - Caffeine Use Caffeine Use: Reports: Coffee, Energy Drinks, Soda - Alcohol Use Days Per Week of Alcohol Use: 4 Number of Drinks Per Day: 8 Total Drinks Per Week: 32 - Recreational Drug Use Recreational Drug Use: No - Sexual History Sexual History: Reports: None - Living Situation & Occupation Living situation: Reports: Single Occupation: Employed ED ROS GENERAL - Review of Systems Review Of Systems: See Below Constitutional: Denies: Fever, Chills HEENT: Reports: No Symptoms Respiratory: Reports: No Symptoms Cardiovascular: Reports: No Symptoms GI/Abdominal: Reports: Abdominal Pain, Diarrhea (once), Vomiting : Reports: No Symptoms Musculoskeletal: Reports: No Symptoms Skin: Reports: No Symptoms Neurological: Reports: No Symptoms ED EXAM, GI/ABD - Physical Exam Exam: See Below Exam Limited By: No Limitations General Appearance: Alert, WD/WN, No Apparent Distress Ears: Normal External Exam, Normal Canal Throat/Mouth: Normal Inspection, Normal Oropharynx Head: Atraumatic, Normocephalic Neck: Normal Inspection, Supple, Non-Tender, Full Range of Motion Respiratory/Chest: No Respiratory Distress, Lungs Clear, Normal Breath Sounds Cardiovascular: Normal Peripheral Pulses, Regular Rate, Rhythm, No Edema GI/Abdominal Exam: Normal Bowel Sounds, Soft, Non-Tender (Not able to illicet any pain with palpation. States that currently he has no pain in abdomen.) Extremities: Normal Inspection Neurological: Alert, Oriented Skin Exam: Warm, Dry, Intact Course - Vital Signs Last Recorded V/S: Last Vital Signs Temp 98.1 F 04/18/20 20:22 Pulse 86 04/18/20 20:22 Resp 16 04/18/20 20:22 BP 130/72 04/18/20 20:22 Pulse Ox 96 04/18/20 20:22 - Orders/Labs/Meds Labs: Laboratory Tests 04/18/20 04/18/20 Range/Units 20:48 20:48 WBC 12.5 H (5.0-10.0) 10^3/uL RBC 5.13 (4.50-6.00) 10^6/uL Hgb 16.0 (14.0-18.0) g/dL Hct 44.8 (40.0-54.0) % MCV 87.3 (82.0-94.0) fL MCH 31.2 (27.0-32.0) pg MCHC 35.7 (33.0-38.0) g/dL RDW Coeff of Sara 12.6 (11.0-15.0) % Plt Count 218 (150-400) 10^3/uL Neut % (Auto) 87.2 H (35-85) % Lymph % (Auto) 8.1 L (10-55) % [place] % (Auto) 4.6 (0-16) % Eos % (Auto) 0 (0-5) % Baso % (Auto) 0.1 (0-3) % Neut # (Auto) 10.94 H (1.80-7.00) 10^3/uL Lymph # (Auto) 1.01 (1.00-4.80) 10^3/uL [place] # (Auto) 0.58 (0.00-0.80) 10^3/uL Eos # (Auto) 0.00 (0.00-0.45) 10^3/uL Baso # (Auto) 0.01 10^3/uL Sodium 140 (136-145) mEq/L Potassium 3.6 (3.5-5.0) mEq/L Chloride 99 (98-106) mEq/L Carbon Dioxide 29 (21-32) mmol/L BUN 16 D (7-18) mg/dL Creatinine 1.1 (0.7-1.3) mg/dL Est Cr Clr Drug Dosing 91.92 mL/min Estimated GFR (MDRD) > 60 (>=60) mL/min Glucose 128 H (75-99) mg/dL Calcium 9.5 (8.4-10.1) mg/dL Amylase 37 (25-115) U/L Ethyl Alcohol < 3 (0-3) mg/dL Meds: Medications Discontinued Medications Generic Name Dose Route Start Last Admin Trade Name Freq PRN Reason Stop Dose Admin Sodium Chloride 1,000 mls @ 999 mls/hr 04/18/20 20:48 04/18/20 20:54 Normal Saline IV 04/18/20 21:48 999 mls/hr .BOLUS ONE Administration Pantoprazole Sodium 40 mg 04/18/20 21:19 04/18/20 21:22 Protonix Iv IVPUSH 04/18/20 21:20 40 mg NOW STA Administration - Re-Assessments/Exams Free Text/Narrative Re-Assessment/Exam: 04/18/20 21:21 Discussed normal lab values at this time. Will finish the liter of fluids that are currently running and then discharge. Departure - Departure Time of Disposition: 21:25 Disposition: Home, Self-Care 01 Condition: Good Clinical Impression: Vomiting, Alcohol abuse - Discharge Information *PRESCRIPTION DRUG MONITORING PROGRAM REVIEWED*: Not Applicable *COPY OF PRESCRIPTION DRUG MONITORING REPORT IN PATIENT DAMON: Not Applicable Referrals: PCP,None [Primary Care Provider] - Forms: ED Department Discharge Additional Instructions: Make appt in clinic for follow up. If pain and vomiting continues may need further workup. phone number to make appt. [phone] start omeprazole daily- You can get this over the counter. Discuss with your primary care provider to help get you into alcohol treatment facility Sepsis Event Note - Evaluation Sepsis Screening Result: No Definite Risk - Focused Exam Date Exam was Performed: 04/19/20 Time Exam was Performed: 22:16 - Problem List & Annotations (1) Vomiting SNOMED Code(s): 262013711 Code(s): R11.10 - VOMITING, UNSPECIFIED Status: Acute Priority: High (2) Alcohol abuse SNOMED Code(s): 27566497 Code(s): F10.10 - ALCOHOL ABUSE, UNCOMPLICATED Status: Acute Priority: High - Problem List Review Problem List Initiated/Reviewed/Updated: Yes
[2020-04-18 21:03] LABS: CHLORIDE,CL 99 mEq/L (98-106); SODIUM,NA 140 mEq/L (136-145)
[2020-04-18] MEDS ORDERED: Pantoprazole 40 MG Vial IVPUSH STA (21:19)
== END 2020-04-18 21:58 | disposition home or self-care (01) ==
LOC: CC.ED 20:22
DX: F10.10 Alcohol abuse, uncomplicated (principal); F17.210 Nicotine dependence, cigarettes, uncomplicated; Z88.5 Allergy status to narcotic agent
CPT/HCPCS: 36415; 80048; 80307; 82150; 85025; 96361; 96374; 99284-25; C9113; J7030

== ENCOUNTER 2020-05-01 05:36 | Emergency (ER) | payer SELFPAY ==
[2020-05-01] MEDS ORDERED: Ondansetron 4 MG Tab.DIS PO ONE (05:37)
[2020-05-01 05:50] VITALS: BP 142/82; PULSE 82
[2020-05-01] MEDS ORDERED: Sodium Chloride 0.9% 1,000 ML IV ONE (05:56)
[2020-05-01] MEDS ORDERED: Pantoprazole 40 MG Vial IVPUSH SCH (06:00)
[2020-05-01] MEDS ORDERED: Ondansetron 4 MG/2 ML SDV IVPUSH STA (06:29)
--- NOTE | 2020-05-01 06:37 | EDM.PDOC ---
ED HPI GENERAL MEDICAL PROBLEM - General Chief Complaint: Abdominal Pain Stated Complaint: nausea Time Seen by Provider: 05/01/20 06:27 Source of Information: Reports: Patient History Limitations: Reports: No Limitations - History of Present Illness INITIAL COMMENTS - FREE TEXT/NARRATIVE: This patient is a 34 year old male that presents to the ER. Patient reports that he is a binge drinker and does this often. Patient reports on Saturday he had four shots of vodka. He reports then on Saturday he started having abdominal cramping, vomiting x12 total, and x2 episodes of diarrhea. Patient denies having blood in emesis. Patient reports that this has continued into this morning. Patient reports that he does not have money for over the counter medications. Patient reports he does not drink everyday. Onset Date: 04/30/20 Duration: Day(s): (1) Location: Reports: Abdomen Quality: Reports: Burning, Other (cramping) Severity: Moderate Improves with: Reports: None Worsens with: Reports: None Associated Symptoms: Reports: Nausea/Vomiting. Denies: Confusion, Chest Pain, Cough, cough w sputum, Diaphoresis, Fever/Chills, Headaches, Loss of Appetite, Malaise, Rash, Seizure, Shortness of Breath, Syncope, Weakness - Related Data Allergies Allergy/AdvReac Type Severity Reaction Status Date / Time codeine Allergy Nausea and Verified 05/01/20 06:06 Vomiting hydrocodone [From Vicodin] Allergy Nausea and Verified 05/01/20 06:06 Vomiting Home Meds: Home Meds . [No Known Home Meds] 08/05/16 [History] Past Medical History HEENT History: Reports: None Other HEENT History: Dental carries Cardiovascular History: Reports: None Respiratory History: Reports: None Gastrointestinal History: Reports: None Genitourinary History: Reports: None Musculoskeletal History: Reports: None Neurological History: Reports: None Psychiatric History: Reports: None Endocrine/Metabolic History: Reports: None Hematologic History: Reports: None Immunologic History: Reports: None Oncologic (Cancer) History: Reports: None Dermatologic History: Reports: None - Infectious Disease History Infectious Disease History: Reports: None - Past Surgical History Head Surgeries/Procedures: Reports: None HEENT Surgical History: Reports: None Cardiovascular Surgical History: Reports: None Respiratory Surgical History: Reports: None GI Surgical History: Reports: Hernia, Abdominal, Hernia Repair/Other Male Surgical History: Reports: None Endocrine Surgical History: Reports: None Neurological Surgical History: Reports: None Musculoskeletal Surgical History: Reports: None Oncologic Surgical History: Reports: None Dermatological Surgical History: Reports: None Social & Family History - Family History Family Medical History: Noncontributory - Tobacco Use Smoking Status *Q: Current Every Day Smoker Years of Tobacco use: 20 Packs/Tins Daily: 0.5 - Caffeine Use Caffeine Use: Reports: Coffee, Energy Drinks - Recreational Drug Use Recreational Drug Use: No - Sexual History Sexual History: Reports: None - Living Situation & Occupation Living situation: Reports: Single Occupation: Employed ED ROS GENERAL - Review of Systems Review Of Systems: See Below Constitutional: Reports: No Symptoms. Denies: Fever HEENT: Reports: No Symptoms Respiratory: Reports: No Symptoms Cardiovascular: Reports: No Symptoms Endocrine: Reports: No Symptoms GI/Abdominal: Reports: Abdominal Pain, Diarrhea, Nausea, Vomiting, Other ( burning to back of throat from voiting.) : Reports: No Symptoms Musculoskeletal: Reports: No Symptoms Skin: Reports: No Symptoms Neurological: Reports: No Symptoms Psychiatric: Reports: No Symptoms Hematologic/Lymphatic: Reports: No Symptoms Immunologic: Reports: No Symptoms ED EXAM, GI/ABD - Physical Exam Exam: See Below Exam Limited By: No Limitations General Appearance: Alert, WD/WN, No Apparent Distress Eyes: Bilateral: Normal Appearance Ears: Normal External Exam, Normal Canal, Hearing Grossly Normal, Normal TMs Nose: Normal Inspection, Normal Mucosa, No Blood Throat/Mouth: Normal Inspection, Normal Lips, Normal Teeth, Normal Gums, Normal Oropharynx, Normal Voice, No Airway Compromise Head: Atraumatic, Normocephalic Neck: Normal Inspection, Supple, Non-Tender, Full Range of Motion Respiratory/Chest: No Respiratory Distress, Lungs Clear, Normal Breath Sounds, No Accessory Muscle Use Cardiovascular: Normal Peripheral Pulses, Regular Rate, Rhythm, No Edema, No Gallop, No JVD, No Murmur, No Rub GI/Abdominal Exam: Normal Bowel Sounds, Soft, No Distention, No Abnormal Bruit, No Mass, Pelvis Stable, Tender (Generalized), Hepatomegaly (mild on exam). No: Distended, Guarding, Rigid, Rebound, Splenomegaly Back Exam: Normal Inspection, Full Range of Motion. No: CVA Tenderness (L), CVA Tenderness (R) Extremities: Normal Inspection, Normal Range of Motion, Non-Tender, No Pedal Edema, Normal Capillary Refill Neurological: Alert, Oriented Psychiatric: Normal Affect, Normal Mood Skin Exam: Warm, Dry, Intact, Normal Color, No Rash Lymphatic: No Adenopathy Course - Vital Signs Last Recorded V/S: Last Vital Signs Temp 98.2 F 05/01/20 05:39 Pulse 82 05/01/20 05:39 Resp 18 05/01/20 05:39 BP 142/82 H 05/01/20 05:39 Pulse Ox 97 05/01/20 05:39 - Orders/Labs/Meds Orders: Active Orders 24 hr Category Date Time Status UA RFX SALAZAR AND CULT IF INDIC [URIN] Stat Lab 05/01/20 05:55 Ordered Pantoprazole [ProTONIX IV] Med 05/01/20 06:00 Active 40 mg IVPUSH Q24H Medication Orders Pantoprazole Sodium (Protonix Iv) 40 mg IVPUSH Q24H TYLER Last Admin: 05/01/20 06:27 Dose: 40 mg Labs: Laboratory Tests 05/01/20 05/01/20 Range/Units 06:15 06:15 WBC 11.6 H (5.0-10.0) 10^3/uL RBC 5.18 (4.50-6.00) 10^6/uL Hgb 16.0 (14.0-18.0) g/dL Hct 45.7 (40.0-54.0) % MCV 88.2 (82.0-94.0) fL MCH 30.9 (27.0-32.0) pg MCHC 35.0 (33.0-38.0) g/dL RDW Coeff of Sara 12.9 (11.0-15.0) % Plt Count 253 (150-400) 10^3/uL Neut % (Auto) 86.9 H (35-85) % Lymph % (Auto) 8.2 L (10-55) % Graves % (Auto) 4.9 (0-16) % Eos % (Auto) 0 (0-5) % Baso % (Auto) 0 (0-3) % Neut # (Auto) 10.04 H (1.80-7.00) 10^3/uL Lymph # (Auto) 0.95 L (1.00-4.80) 10^3/uL Graves # (Auto) 0.57 (0.00-0.80) 10^3/uL Eos # (Auto) 0.00 (0.00-0.45) 10^3/uL Baso # (Auto) 0.00 10^3/uL Sodium 141 (136-145) mEq/L Potassium 3.4 L (3.5-5.0) mEq/L Chloride 99 (98-106) mEq/L Carbon Dioxide 32 (21-32) mmol/L BUN 15 (7-18) mg/dL Creatinine 1.1 (0.7-1.3) mg/dL Est Cr Clr Drug Dosing 88.86 mL/min Estimated GFR (MDRD) > 60 (>=60) mL/min Glucose 130 H (75-99) mg/dL Calcium 9.2 (8.4-10.1) mg/dL Total Bilirubin 0.5 (0.0-1.0) mg/dL AST 15 (15-37) U/L ALT 23 (12-78) U/L Alkaline Phosphatase 72 (46-116) U/L Total Protein 7.7 (6.4-8.2) g/dL Albumin 4.6 (3.4-5.0) g/dL Amylase 38 (25-115) U/L Lipase 43 L (73-393) U/L Meds: Medications Generic Name Dose Route Start Last Admin Trade Name Freq PRN Reason Stop Dose Admin Pantoprazole Sodium 40 mg 05/01/20 06:00 05/01/20 06:27 Protonix Iv IVPUSH 40 mg Q24H TYLER Administration Discontinued Medications Generic Name Dose Route Start Last Admin Trade Name Freq PRN Reason Stop Dose Admin Sodium Chloride 1,000 mls @ 999 mls/hr 05/01/20 05:56 05/01/20 06:07 Normal Saline IV 05/01/20 06:56 999 mls/hr .BOLUS ONE Administration Ondansetron HCl 4 mg 05/01/20 06:29 05/01/20 06:32 Zofran IVPUSH 05/01/20 06:30 4 mg NOW STA Administration Ondansetron HCl 2 packet 05/01/20 07:41 Take Home: Ondansetron Odt 4 Mg, 2 Tab Pack PO 05/01/20 07:42 ONETIME ONE - Re-Assessments/Exams Free Text/Narrative Re-Assessment/Exam: 05/01/20 07:38 I have reviewed patient labs. They are pretty consistent with his previous visit this month. Patient does have mild elevated wbc, which could be due to vomiting. Patient has no fever, no acute abdomen. He also reports after the medications and fluids he feels much better and his pain is nearly resolved. I will discharge the patient home, educated when to return. Departure - Departure Time of Disposition: 07:39 Disposition: Home, Self-Care 01 Condition: Fair Clinical Impression: Acute alcoholic gastritis Qualifiers: Gastritis bleeding: without bleeding Qualified Code(s): K29.20 - Alcoholic gastritis without bleeding - Discharge Information *PRESCRIPTION DRUG MONITORING PROGRAM REVIEWED*: Not Applicable *COPY OF PRESCRIPTION DRUG MONITORING REPORT IN PATIENT DAMON: Not Applicable Instructions: Gastritis, Adult, [id number], Nausea and Vomiting, Adult, Easy- to-Read Referrals: PCP,None [Primary Care Provider] - Forms: ED Department Discharge Additional Instructions: Followup with your primary care provider: Please call clinic to set this up Return to the ER for worsening of condition or any emergent concerns increase fluids Decrease alcohol consumption Zofran 4mg 1 pill under the tongue as needed every 6 hours for nausea or vomiting #4 take home Sepsis Event Note - Evaluation Sepsis Screening Result: No Definite Risk - Focused Exam Vital Signs: Vital Signs Temp Pulse Resp BP Pulse Ox 05/01/20 05:39 98.2 F 82 18 142/82 H 97 Date Exam was Performed: 05/01/20 Time Exam was Performed: 07:43 - My Orders Last 24 Hours: My Active Orders 05/01/20 05:55 UA RFX SALAZAR AND CULT IF INDIC [URIN] Stat 05/01/20 06:00 Pantoprazole [ProTONIX IV] 40 mg IVPUSH Q24H - Assessment/Plan Last 24 Hours: My Active Orders 05/01/20 05:55 UA RFX SALAZAR AND CULT IF INDIC [URIN] Stat 05/01/20 06:00 Pantoprazole [ProTONIX IV] 40 mg IVPUSH Q24H Plan: PLEASE SEE RN NOTE FOR PFSH
[2020-05-01 06:39] LABS: CHLORIDE,CL 99 mEq/L (98-106); SODIUM,NA 141 mEq/L (136-145)
[2020-05-01] MEDS ORDERED: Take Home: Ondansetron 4 MG Tab.DIS, 2 Tab Pack PO ONE (07:41)
== END 2020-05-01 08:30 | disposition home or self-care (01) ==
LOC: CC.ED 05:36
DX: K29.20 Alcoholic gastritis without bleeding (principal); F17.210 Nicotine dependence, cigarettes, uncomplicated; Z88.5 Allergy status to narcotic agent
CPT/HCPCS: 36415; 80053; 82150; 83690; 85025; 96361; 96374; 99284-25; A9270-GY; C9113; J2405; J7030

== ENCOUNTER 2020-10-12 20:02 | Emergency (ER) | payer SELFPAY ==
[2020-10-12] MEDS ORDERED: Ondansetron 4 MG/2 ML SDV IVPUSH PRN (20:05)
[2020-10-12 20:08] VITALS: BP 162/96; PULSE 61
[2020-10-12] MEDS ORDERED: Sodium Chloride 0.9% 1,000 ML IV SCH (20:15)
== END 2020-10-12 20:17 | disposition left against medical advice (07) ==
LOC: CC.ED 20:02
DX: Z53.21 Procedure and treatment not carried out due to patient leaving prior to being seen by health care provider (principal)

== ENCOUNTER 2022-01-03 14:35 | Emergency (ER) | payer SELFPAY ==
[2022-01-03 14:44] VITALS: BP 169/95; PULSE 59
[2022-01-03] MEDS: Alum Hydrox/Mag Hydrox/Simeth 30 ML, Lidocaine 2% 15 ML PO ONE ×2 (15:00)
[2022-01-03] MEDS: Ondansetron 4 MG/2 ML SDV IVPUSH PRN (15:00)
[2022-01-03] MEDS: GI Cocktail Oral Solution 30 ML PO ONE (15:04)
[2022-01-03 15:14] LABS: CHLORIDE,CL 98 mEq/L (98-106); SODIUM,NA 141 mEq/L (136-145)
[2022-01-03] MEDS ORDERED: Iopamidol 755 Mg/ML 100 ML Bottle IVPUSH ONE (15:44)
[2022-01-03] MEDS: Sodium Chloride 0.9% 1,000 ML IV SCH (16:21)
[2022-01-03] MEDS: Potassium Chloride Riders 40 MEQ in Premix Bag 1 BAG IV ONE (16:22)
[2022-01-03] MEDS: Potassium Chloride 10 MEQ Tab.ER PO STA (18:38)
[2022-01-03] MEDS: Pantoprazole 40 MG Vial IVPUSH ONE (18:39)
== END 2022-01-03 20:24 | disposition home or self-care (01) ==
LOC: CC.ED 14:35
DX: R10.9 Unspecified abdominal pain (principal); R11.2 Nausea with vomiting, unspecified; E87.6 Hypokalemia; F10.10 Alcohol abuse, uncomplicated; Z88.5 Allergy status to narcotic agent; Z79.899 Other long term (current) drug therapy; Z72.0 Tobacco use
CPT/HCPCS: 36415; 74177; 80048; 83690; 83735; 85025; 93005; 96365; 96366; 96375; 99284-25; A9270-GY; C9113; J2405; J3480; J7030

== ENCOUNTER 2022-04-30 19:57 | Emergency (ER) | payer SELFPAY ==
[2022-04-30] MEDS ORDERED: Ondansetron 4 MG/2 ML SDV IVPUSH ONE (20:01)
[2022-04-30] MEDS ORDERED: Sodium Chloride 0.9% 10 ML Syringe FLUSH PRN (20:01)
[2022-04-30] MEDS ORDERED: Lactated Ringers 1,000 ML IV ONE (20:01)
[2022-04-30] MEDS ORDERED: Pantoprazole 40 MG Vial IVPUSH STA (20:14)
[2022-04-30] MEDS ORDERED: methylPREDNISolone Sodium Succinate 125 MG/2 ML SDV IVPUSH STA (20:16)
[2022-04-30] MEDS ORDERED: Albuterol/Ipratropium 3.0-0.5 MG/3 ML Neb Soln NEB ONE (20:17)
[2022-04-30 20:52] LABS: CHLORIDE,CL 96 mEq/L (98-106); SODIUM,NA 138 mEq/L (136-145)
[2022-04-30 21:04] VITALS: BP 122/99; PULSE 84
[2022-04-30 21:11] LABS: CORONAVIRUS COVID-19 NAA NEGATIVE (NEGATIVE)
[2022-04-30] MEDS ORDERED: Iopamidol 755 Mg/ML 100 ML Bottle IVPUSH ONE (21:30)
[2022-05-01] MEDS ORDERED: Potassium Chloride 10 MEQ Tab.ER PO SCH (08:00)
== END 2022-04-30 22:40 | disposition left against medical advice (07) ==
LOC: CC.ED 19:57
DX: R10.9 Unspecified abdominal pain (principal); E87.6 Hypokalemia; R06.2 Wheezing; Z88.5 Allergy status to narcotic agent; Z20.822 Contact with and (suspected) exposure to COVID-19
CPT/HCPCS: 0240U; 36415; 71046; 74177; 80053; 82550; 83605; 83690; 83735; 84484; 85025; 86140; 93005; 94640; 96361; 96374; 96375; 99284; 99284-25; C9113; J2405; J2930; J7120; J7620-GY; Q9967